=== PATIENT | male | born 2000 | race Caucasian/White ===

== ENCOUNTER 2023-09-20 15:54 | Emergency (ER) | payer OTHER ==
[~2023-09-20] VITALS: Ht 177.8 cm; Wt 83.5 kg
[2023-09-20 16:01] VITALS: BP_SYST 118; PULSE 81; RESP 18; TEMP 98.3; O2SAT 98
[2023-09-20] MEDS ORDERED: AMOX500C2 PO (16:38)
[2023-09-20] MEDS ORDERED: IBUP-1971 PO (16:38)
[2023-09-20 17:41] VITALS: BP_SYST 118; PULSE 81; RESP 18; TEMP 98.3; O2SAT 98
== END 2023-09-20 17:40 | disposition home or self-care (01) ==
LOC: SED 15:54
DX: J02.9 Acute pharyngitis, unspecified (principal)
CPT/HCPCS: 99283